=== PATIENT | female | born 1995 | race Two or more races ===

== ENCOUNTER 2025-09-28 06:39 | Emergency (ER) | payer MEDICAID, SELFPAY ==
[2025-09-28 06:51] VITALS: BP 122/82; PULSE 69; RESP 16; TEMP 36.9; O2SAT 96
--- NOTE | 2025-09-28 06:56 | XR_ITS ---
Examination: CT abdomen and pelvis without contrast. Coronal 3-D reconstructions. Sagittal 2-D reconstructions. Date and time of exam: September 28, 2025, 0955 hours INDICATIONS: Left sided upper and lower abdominal pain beginning 8 days ago CTDI: vol (mGy): 6.96 DLP: (mGycm): 362 Technique: Axial images of the abdomen have been obtained, 3 mm slice thickness Intravenous contrast material has not been administered. Low dose protocols were performed. One or more of the following dose reduction techniques were used; automated exposure control, adjustment of the mA and/or KV according to patient size, use of iterative reconstruction technique. Findings: No renal or ureteral calculi Tiny gallstone No pancreatic or adrenal mass No renal or ureteral calculi, no hydronephrosis Aorta normal size Normal appendix No bowel obstruction Anteverted uterus No diverticulitis Urinary bladder intact Osseous structures intact IMPRESSION: Recommend gallbladder sonography to confirm gallstones Negative for pancreatitis No renal or ureteral calculi, no hydronephrosis Normal appendix No bowel obstruction or diverticulitis
[2025-09-28] MEDS: ONDANSETRON ODT 4 MG TABRAP PO (07:15)
[2025-09-28 07:24] LABS: Basophils # (Auto) 0.0 Thou/mm3 (0.0-0.2); Basophils % (Auto) 0 % (0-2.5); Eosinophils # (Auto) 0.2 Thou/mm3 (0.0-0.5); Eosinophils % (Auto) 3 % (0-10); Hematocrit 40.6 % (36.0-46.0); Hemoglobin 12.9 g/dL (12.0-16.0); Immature Granulocytes Auto 0.01 Thou/mm3 (0.00-0.00); Lymphocytes # (Auto) 1.7 Thou/mm3 (1.0-4.8); Lymphocytes % (Auto) 32 % (10-50); Mean Corpuscular HGB Conc 31.8 g/dl (31.0-37.0); Mean Corpuscular Hemoglobin 28.4 pg (25.0-35.0); Mean Corpuscular Volume 89 fL (80-100); Monocytes # (Auto) 0.3 Thou/mm3 (0.0-0.8); Monocytes % (Auto) 6 % (0-12); Neutrophils # (Auto) 3.1 Thou/mm3 (1.8-7.7); Neutrophils % (Auto) 59 % (37-80); Nucleated Red Blood Cell # 0.00 Thou/mm3 (0.00-0.00); Nucleated Red Blood Cell % 0 /100 WBC (0); Platelet Count 163 Thou/mm3 (140-440); RDW Standard Deviation 43.8 fL (36.4-46.3); Red Blood Count 4.54 Miln/mm3 (4.00-5.20); White Blood Count 5.4 Thou/mm3 (3.6-11.0)
[2025-09-28 07:24] LABS: Collection Type, Urine Clean Catch
[2025-09-28 07:37] LABS: Bacteria,Urine Rare; Bilirubin,Urine Negative (Negative); Blood,Urine Trace (Negative); Clarity,Urine Clear (Clear/Hazy); Color,Urine Colorless (Lt Yel-Yel); Glucose, Urine Negative (Negative); Ketones,Urine Negative (Negative); Leukocyte Esterase,Urine Positive (Negative); Nitrite,Urine Negative (Negative); PH,Urine 6.0 (5.0-7.0); Protein,Urine Negative (Neg - Trace); RBC,Urine 2 /hpf (0-3); Specific Gravity,Urine 1.008 (1.001-1.035); Squamous Epithelial Cell,Urine 8 /hpf (0-5); Urobilinogen,Urine Negative mg/dL (0.0-1.0); WBC,Urine 9 /hpf (0-5)
--- NOTE | 2025-09-28 07:39 | PD.EDABDPN ---
ED Abdominal Pain RME/HPI General Chief Complaint: Abdominal Pain Stated complaint: LEFT LOWER ABDOMINAL PAIN Time seen by provider: 09/28/25 06:59 Arrival date/time: 09/28/25 06:39 29-year-old female with no known medical history presents to the emergency room with a chief complaint of left lower quadrant abdominal pain and nausea x 2 days Source: patient Mode of arrival: ambulatory Limitations: no limitations Related Data Home Medications ?Medication ?Instructions ?Recorded ?Confirmed vitamins-iron fumarate 27 1 caplet PO DAILY 10/04/19 10/18/22 mg iron-folic acid 0.8 mg tablet ( Vitamin) Previous Rx's ?Medication ?Instructions ?Recorded hydrocodone 5 mg-acetaminophen 325 2 tab PO Q6H PRN Pain (Scale Score 10/20/22 mg tablet 7-10) #90 tabs Allergies Allergy/AdvReac Type Severity Reaction Status Date / Time ibuprofen Allergy Severe Nausea Verified 09/20/24 14:05 naproxen Allergy Severe Rash Verified 09/20/24 14:05 Review of Systems Review of Systems Systems Reviewed: All systems reviewed, normal except as documented Constitutional Constitutional: Reports system reviewed and no additional complaints, except as documented, Denies fatigue, Denies fever(s), Denies headache(s) and Denies weakness Eyes Eyes: Reports system reviewed and no additional complaints, except as documented, Denies blurry vision and Denies change in vision ENT Ears, Nose, Mouth, and Throat: Reports system reviewed and no additional complaints, except as documented, Denies otalgia, Denies headache(s), Denies nasal congestion, Denies throat swelling and Denies vertigo Cardiovascular Cardiovascular: Reports system reviewed and no additional complaints, except as documented, Denies chest pain, Denies dyspnea and Denies dyspnea on exertion Respiratory Respiratory: Reports system reviewed and no additional complaints, except as documented, Denies chest congestion, Denies cough, Denies dyspnea, Denies dyspnea on exertion and Denies wheezing Gastrointestinal Gastrointestinal: Reports system reviewed and no additional complaints, except as documented, Reports abdominal pain, Reports cramping, Reports nausea and Denies vomiting Genitourinary Genitourinary: Reports system reviewed and no additional complaints, except as documented Musculoskeletal Musculoskeletal: Reports system reviewed and no additional complaints, except as documented and Denies back pain Integumentary/Breasts Skin/Breast: Reports system reviewed and no additional complaints, except as documented and Denies wounds Neurologic Neurologic: Reports system reviewed and no additional complaints, except as documented, Denies confusion, Denies headache(s), Denies lack of coordination, Denies vertigo and Denies weakness Psychiatric Psychiatric: Reports system reviewed and no additional complaints, except as documented, Denies anxiety, Denies confusion, Denies depression, Denies paranoia, Denies suicidal ideation and Denies tactile hallucinations Endocrine Endocrine: Reports system reviewed and no additional complaints, except as documented and Denies fatigue Hematologic/Lymphatic Hematologic/Lymphatic: Reports system reviewed and no additional complaints, except as documented and Denies lymphadenopathy Allergic/Immunologic Allergic/Immunologic: Reports system reviewed and no additional complaints, except as documented, Denies throat swelling, Denies urticaria and Denies wheezing Past Medical History Past Medical History NEUROLOGIC: Negative Neurological Disorders or Seizures CARDIAC: Negative Cardiac Disorders, Congestive Heart Failure or Hypertension RESPIRATORY: Negative Chronic Obstructive Pulmonary Disease (COPD) GASTROINTESTINAL: Negative Gastrointestinal Disorders, Hepatitis or Colorectal Cancer GENITOURINARY: Negative Genitourinary Disorders, Renal Disease or Prostate Cancer REPRODUCTIVE: Negative Breast Cancer or Testicular Cancer MUSCULOSKELETAL: Negative Musculoskeletal Disorders or Bone Cancer ENDOCRINE: Negative Endocrine Disorders, Diabetes Mellitus Type 1 or Diabetes Mellitus Type 2 HEMATOLOGIC: Negative Blood Disorders or Anemia PSYCHO/SOCIAL: Negative Depression or Anxiety OTHER HISTORY: Positive Chicken Pox ( A CHILD); Negative Hospitalization, Autoimmune Disease, Down Syndrome, Developmental Delay, Shingles, Falls, Blood Transfusions, Blood Transfusion Reaction, Anesthesia Reactions, Organ Transplant, Chemotherapy, Radiation Therapy, Hyperbaric Therapy, MRSA, VRSA, Vancomycin-Resistant Enterococci, Human Immunodeficiency Virus (HIV), Measles, Mumps, Rubella (Chinese Measles), Pertussis, Clostridium Difficile, Cancer, Breast Cancer, Cervical Cancer, Colorectal Cancer, Lung Cancer, Ovarian Cancer, Prostate Cancer or Testicular Cancer Family History FAMILY HISTORY: Positive Family Cardiac Disorders (MOTHER AND FATHER HTN); Negative Family Psychiatric Problems, Family Respiratory Disorders, Family Gastrointestinal Problems, Family Cancer, Family Surgery or Family Anesthesia Reaction Surgical History SURGICAL: Negative Section or Organ Transplant Social History SMOKING STATUS: Never smoker SECOND HAND EXPOSURE: No ED Exam General Limitations: Present no limitations General appearance: Present alert and in no apparent distress Head Head exam: Present atraumatic Eye Eye exam: Present normal appearance, PERRL and EOMI ENT ENT exam: Present normal exam, normal oropharynx and mucous membranes moist Neck Neck exam: Present normal inspection, full ROM and trachea midline Chest Chest inspection: Present normal inspection and symmetric chest wall rise Respiratory Respiratory exam: Present normal lung sounds bilaterally Cardiovascular Cardiovascular exam: Present regular rate, normal rhythm and normal heart sounds Abdominal Exam Abdominal exam: Present soft, tenderness and normal bowel sounds Abdominal tenderness: Present LLQ and mild Extremities Exam Extremities exam: Present normal inspection and full ROM Back Exam Back exam: Present normal inspection and full ROM Neurological Exam Neurological exam: Present alert, oriented X3 and CN II-XII intact Psychiatric Psychiatric exam: Present normal affect and normal mood Skin Skin exam: Present warm, dry, intact and normal color Course Quality Measures none Orders Category Date Time Status CT abdomen pelvis wo con Stat Exams 09/28/25 06:56 Completed CBC Stat Lab 09/28/25 07:16 Completed CMP [Comprehensive Metabolic Panel] Stat Lab 09/28/25 07:16 Completed HCG Qualitative,Urine Stat Lab 09/28/25 07:10 Completed Lipase Stat Lab 09/28/25 07:16 Completed UA [Urinalysis] Stat Lab 09/28/25 07:10 Completed Urine Culture Stat Lab 09/28/25 07:10 Received HYDROcodone*/APAP 5/325 [[place] 5/325] Med 09/28/25 08:31 Discontinued 1 tab PO X1 ONE Ondansetron Odt [Zofran Odt] Med 09/28/25 06:59 Discontinued 4 mg PO X1 ONE Vital Signs Vital signs: Vital Signs Temperature 98.4 F 09/28/25 06:51 Pulse Rate 69 09/28/25 06:51 Respiratory Rate 16 09/28/25 06:51 Blood Pressure 122/82 09/28/25 06:51 Pulse Oximetry (%) 96 09/28/25 06:51 Oxygen Delivery Method Room Air 09/28/25 06:51 Abdominal Pain MDM MDM Narrative MDM Narrative:: 29-year-old female with no known medical history presents to the emergency room with a chief complaint of left lower quadrant abdominal pain and nausea x 2 days Patient is hemodynamically stable and in no apparent distress. Patient is afebrile not tachycardic not tachypneic Physical examination shows tenderness to the left lower quadrant with palpation. There is no right lower quadrant or right upper quadrant abdominal tenderness with palpation. There is no tenderness to McBurney's point and the patient has a negative Grant sign. CBC CMP were negative for any leukocytosis urinalysis was within normal limits CT of the abdomen and pelvis was negative for any diverticulosis or diverticulitis. There is a normal appendix and a tiny gallstone. Patient has no tenderness to the right upper quadrant. Bilirubin levels and liver enzymes are within normal limits Patient was discharged and educated to follow-up with primary care provider in the next 24 to 48 hours and return to the emergency room for any evidence of worsening signs or symptoms Patient data External records reviewed:: [facility] previous records Clinical information provided by:: patient Social determinants that could affect healthcare access:: none Patient has the following chronic illnesses:: No chronic illness How is presenting disease/condition affected by chronic disease/condition?: no chronic disease Evaluation data The following diagnostics were reviewed and interpreted by me:: lab results and radiology exam(s) Lab and/or radiology exams considered but not ordered:: Labs and radiology exams considered and ordered Interpretation Summary: CT abdomen and pelvis-Findings: No renal or ureteral calculi Tiny gallstone No pancreatic or adrenal mass No renal or ureteral calculi, no hydronephrosis Aorta normal size Normal appendix No bowel obstruction Anteverted uterus No diverticulitis Urinary bladder intact Osseous structures intact IMPRESSION: Recommend gallbladder sonography to confirm gallstones Negative for pancreatitis No renal or ureteral calculi, no hydronephrosis Normal appendix No bowel obstruction or diverticulitis Medications / Prescriptions Medications or Prescriptions considered but not ordered:: Medication given Medication administrations:: Medication Administration History Discontinued Medications Hydrocodone Bitart/Acetaminophen (Hydrocodone/Apap 5/325 Tablet) 1 tab PO X1 ONE Stop: 09/28/25 08:32 Last Admin: 09/28/25 08:43 Dose: 1 tab Documented By: JUANCARLOS Ondansetron HCl (Ondansetron Odt 4 Mg Tabrap) 4 mg PO X1 ONE; Protocol Stop: 09/28/25 07:00 Last Admin: 09/28/25 07:15 Dose: 4 mg Documented By: JUANCARLOS Medication given Consultations Consultation(s) initiated? (list below): No Diagnosis Differential diagnosis abdominal pain: abdominal pain, constipation, diverticulitis, gastroenteritis and other (UTI) Most likely diagnosis given after review of the tests above:: Gastroenteritis Admission Indicated Admission indicated?: not indicated Admission Request Was there a request for admission?: No Disposition Plan Disposition Plan: Discharge Discharge Attestation Discharge Attestation: The patient and all family members were given an opportunity to ask questions and understood the discharge instructions. Discharge instructions specifically effects, indications for sooner follow up or return to the emergency department, and the expected course of current diagnosis. Patient condition: Stable Discharge Plan Plan Patient Disposition: HOME (Self Care) Discharge Disposition comment: Stable Prescriptions/Referrals Prescriptions/Med Rec: No Action Vitamin 27 mg iron- 0.8 mg Tablet 1 caplet PO DAILY hydrocodone-acetaminophen 5-325 mg Tablet 2 tab PO Q6H MDD 8 tablets per day PRN (Reason: Pain (Scale Score 7-10)) Qty: 90 0RF Referrals: Jose Arzate MD [Primary Care Provider, Family Practice] - In 1 week Problem List Clinical Impression: Gastroenteritis Patient/Caregiver Discharge Instructions Education Materials: ED Gastroenteritis, Noninfectious Additional Instructions: Por favor, consulte con novoa m?dico de cabecera en las pr?ximas 24 a 48 horas. La tomograf?a computarizada de abdomen y pelvis fue negativa para cualquier hallazgo misty. Kait an?lisis de edgar y orina estaban dentro de los l?mites normales. Si observa cualquier evidencia de empeoramiento de los signos o s?ntomas, acuda a urgencias de inmediato. Print Language: Somali Stand Alone Forms: Rosemary Award Info., Work/School Release, Patient Portal Info Letter
[2025-09-28 07:48] LABS: Alanine Aminotransferase 15 U/L (10-49); Albumin, Serum 5.0 gm/dL (3.5-5.0); Albumin/Globulin Ratio 2.5 (1.2-2.2); Alkaline Phosphatase 101 U/L (46-116); Anion Gap 10 (7-16); Aspartate Amino Transferase 18 U/L (0-34); BUN/Creatinine Ratio 17 Ratio (12-20); Bilirubin,Total 0.3 mg/dL (0.3-1.2); Blood Urea Nitrogen 10 mg/dL (9-23); Calcium 9.2 mg/dL (8.3-10.6); Calcium (Corrected) 9.2 mg/dL (8.5-10.1); Carbon Dioxide 25.3 mMol/L (20.0-31.0); Chloride 107 mMol/L (98-107); Creatinine (Component) 0.6 mg/dL (0.6-1.3); Globulin 2.0 gm/dL (2.3-3.5); Glucose 99 mg/dL (74-106); Lipase 30 U/L (12-53); Osmolality,Calculated 282 (275-295); Potassium 4.2 mMol/L (3.4-5.1); Sodium 142 mMol/L (136-145); Total Protein 7.0 gm/dL (5.7-8.2); eGFR > 60 See Note
[2025-09-28 07:52] LABS: HCG Qualitative,Urine Negative
[2025-09-28] MEDS: HYDROcodone/APAP 5/325 TABLET 1 TAB PO (08:43)
--- NOTE | 2025-09-28 09:57 | PC.NURSE ---
ATTEMPTED TO REASSESS PAIN LEVEL BUT NO ANSWER AFTER CALLING IN LOBBY AND OUTSIDE.
[2025-09-28 10:56] VITALS: BP 121/77; PULSE 52; RESP 18; TEMP 36.8; O2SAT 98
== END 2025-09-28 10:56 | disposition home or self-care (01) ==
PROVIDERS: Nurse Practitioner Family; Emergency Provider Family Medicine; PCP Family Medicine
DX: K52.9 Noninfective gastroenteritis and colitis, unspecified (principal)
CPT/HCPCS: 36415; 74176; 80053; 81001; 81025; 83690; 85025; 87086; 87186; 99283; Q0162; A9270